=== PATIENT | female | born 1965 | race Caucasian/White ===

== ENCOUNTER 2018-08-15 20:50 | Emergency (ER) | payer MEDICARE, OTHER ==
[~2018-08-15] VITALS: Ht 154.9 cm; Wt 65.8 kg
[2018-08-15 21:04] VITALS: BP_SYST 135
--- NOTE | 2018-08-15 21:12 | NUR ---
Patient to ER bed 8 to gown for evaluation. Side rails up. Report given to CEDRIC BEATTY.
--- NOTE | 2018-08-15 21:25 | NUR ---
Pt came to the ED for R big toe pain which started 3 weeks ago. Pt reports to have gotten her pedicure 2 months ago. Pt went to get her ingrown toenail last , when removed lift team technician said that pus came out when ingrown was removed. Reports body aches last week. Reports radiates up R leg. Pt describes pain as throbbing. Denies taking anything for the pain. Reports taking Tramdol for chronic back pain. 10 pain. Hx of diabetic. No other complaints/injuries noted. Will cont. to monitor.
--- NOTE | 2018-08-15 21:49 | NUR ---
ER at bedside examining patient.
[2018-08-15] MEDS ORDERED: KETOROLAC TROMETHAMINE 60 MG/2 ML VIAL IM ONE (22:00)
[2018-08-15] MEDS ORDERED: cefTRIAXone 1 GM in LIDOCAINE 1%, 20 ML MDV 2.1 ML IM ONE (22:00)
--- NOTE | 2018-08-15 22:12 | NUR ---
Pt medicated with Rocephin and Lidocaine IM and Toradol IM per MD order. Tolerated well. Will cont. to monitor.
[2018-08-15 23:00] VITALS: BP_SYST 135
--- NOTE | 2018-08-15 23:00 | NUR ---
Patient given written and verbal discharge instructions and verbalizes understanding. ER MD Dr. Flaherty discussed with patient the results and treatment provided. Patient in stable condition. ID arm band removed. Rx of naprosyn and keflex given. Patient educated on pain management and to follow up with PMD within 2-3 days. Pain Scale 0/10. Opportunity for questions provided and answered. Medication side effect fact sheet provided.
== END 2018-08-15 23:00 | disposition home or self-care (01) ==
LOC: SED 20:50
DX: L03.031 Cellulitis of right toe (principal); E11.9 Type 2 diabetes mellitus without complications; I10 Essential (primary) hypertension
CPT/HCPCS: 96372; 99283; J0696; J1885; J2001